=== PATIENT | male | born 1995 | race Caucasian/White ===

== ENCOUNTER 2019-03-22 02:13 | Emergency (ER) | payer OTHER ==
[~2019-03-22] VITALS: Ht 188 cm; Wt 99.8 kg
[2019-03-22] MEDS ORDERED: CEPH500 PO (05:24)
== END 2019-03-22 05:43 | disposition home or self-care (01) ==
LOC: ER 02:13
DX: S66.127A Laceration of flexor muscle, fascia and tendon of left little finger at wrist and hand level, initial encounter (principal); S66.125A Laceration of flexor muscle, fascia and tendon of left ring finger at wrist and hand level, initial encounter; S66.124A Laceration of flexor muscle, fascia and tendon of right ring finger at wrist and hand level, initial encounter; Z23 Encounter for immunization; W45.8XXA Other foreign body or object entering through skin, initial encounter
CPT/HCPCS: 12002; 73130; 90471; 90714; 99283-25

== ENCOUNTER 2019-03-26 10:15 | Day surgery (SDC) | payer OTHER ==
[~2019-03-26] VITALS: Ht 188 cm; Wt 101.5 kg
[~2019-03-26 10:15] MED LIST: CEPH500 PO
--- NOTE | 2019-03-26 13:55 | NUR ---
03/26/19 1355 Karen Cedillo PT C/O THROBBING HEADACHE/MIGRAINE. PT MEDICATED FOR PAIN PER ORDERS. PT STATES IT HAS HELPED AND PAIN IS TOLERABLE IN HIS LEFT HAND. PT EATING AND DRINKING WELL. ICE AND ELEVATION IMPLEMENTED.
== END 2019-03-26 14:14 | disposition home or self-care (01) ==
LOC: ORSCSDS 10:15
PROVIDERS: Orthopaedic Surgery
PROC: 0LQ80ZZ Repair Left Hand Tendon, Open Approach (ICD-10-PCS; principal; 2019-03-26 11:30)
DX: S66.127A Laceration of flexor muscle, fascia and tendon of left little finger at wrist and hand level, initial encounter (principal); Z87.891 Personal history of nicotine dependence
CPT/HCPCS: J0690; J2250; J2704; J2795; J3010; J7120